=== PATIENT | male | born 1950 | race Caucasian/White ===

== ENCOUNTER → 2016-12-07 | Emergency (ER) | payer OTHER ==
[~2016-12-07] VITALS: Ht 180.3 cm; Wt 95.5 kg
[~2016-12-07] MED LIST: TYLENOL W/COD1 UDTAB PO
[2016-12-07 09:43] VITALS: BP 174/87; PULSE 70; TEMP 97.8
== END | disposition home or self-care (01) ==
LOC: COL.ER 09:38
DX: S82.042A Displaced comminuted fracture of left patella, initial encounter for closed fracture (principal); W01.198A Fall on same level from slipping, tripping and stumbling with subsequent striking against other object, initial encounter; Y92.39 Other specified sports and athletic area as the place of occurrence of the external cause